=== PATIENT | male | born 1950 | race Two or more races ===

== ENCOUNTER 2018-01-24 18:00 | Inpatient (IN) | payer MEDICARE, BC ==
[~2018-01-24] VITALS: Ht 185.4 cm; Wt 95.7 kg
[2018-01-24] MEDS ORDERED: ASPIR 8181 MG ORAL (18:42)
[2018-01-24] MEDS ORDERED: UNOBMED (18:43)
--- NOTE | 2018-01-24 18:46 | Emergency Room Report ---
History of Present Illness General Chief Complaint: Multiple Trauma/Fall Source: Patient Present Illness HPI Patient presents with complaints of left hip pain he was fixing the fridge and the floor was wet Essentially slipped and tripped falling Patient denies any lapse of consciousness Denies any abdominal pain Pain is localized to the left hip Has difficulty bearing weight Denies any vomiting or diarrhea denies any neuropathy Allergies: Coded Allergies: No Known Allergies (Unverified , 01/24/18) Patient History Past Medical History: see triage record Pertinent Family History: none Reviewed Nursing Documentation: PMH: Agreed; PSxH: Agreed Nursing Documentation-PMH Past Medical History: No History, Except For Hx Hypertension: Yes Review of Systems All Other Systems: negative except mentioned in HPI Physical Exam Vital Signs Date Time Temp Pulse Resp B/P (MAP) Pulse Ox O2 Delivery O2 Flow Rate FiO2 01/24/18 18:18 97.4 63 19 161/74 96 Room Air 97.3 Sp02 EP Interpretation: reviewed, normal General Appearance: well appearing, no apparent distress Head: normocephalic, atraumatic Eyes: bilateral eye PERRL, bilateral eye EOMI ENT: hearing grossly normal, normal pharynx, TMs + canals normal, uvula midline Neck: full range of motion, supple, no meningismus, no bony tend Respiratory: lungs clear, normal breath sounds, no rhonchi, no respiratory distress, no retraction, no accessory muscle use Cardiovascular #1: normal peripheral pulses, regular rate, rhythm, no edema, no gallop, no JVD, no murmur Gastrointestinal: normal bowel sounds, non tender, soft, no mass, no organomegaly, non-distended, no guarding, no hernia, no pulsatile mass, no rebound Genitourinary: no CVA tenderness Musculoskeletal: other - Tender on palpation of the left iliac crest area, moving foot, and neurovascularly intact otherwise Neurologic: oriented x3, responsive, sensory intact Psychiatric: mood/affect normal Skin: normal color, no rash, warm/dry, palpation normal Lymphatic: normal inspection, no adenopathy Medical Decision Making Diagnostic Impression: Primary Impression: Femoral neck fracture ER Course Given the patient's history and presentation patient was written for pain medication upon arrival however he is refusing the medication This is taken into consideration regarding long bone fracture Patient however did take Tylenol orally Imaging studies do reveal left-sided compacted left-sided femoral neck fracture After further discussion with family and the patient there are notified that this is a diagnosis that requires admission to the hospital Orthopedic specialty is contacted Patient admitted for further care Labs Test 01/24/18 21:25 White Blood Count 13.5 K/UL (4.8-10.8) Red Blood Count 3.97 M/UL (4.70-6.10) Hemoglobin 13.2 G/DL (14.2-18.0) Hematocrit 38.9 % (42.0-52.0) Mean Corpuscular Volume 98 FL (80-99) Mean Corpuscular Hemoglobin 33.3 PG (27.0-31.0) Mean Corpuscular Hemoglobin Concent 33.9 G/DL (32.0-36.0) Red Cell Distribution Width 11.5 % (11.6-14.8) Platelet Count 203 K/UL (150-450) Mean Platelet Volume 4.9 FL (6.5-10.1) Neutrophils (%) (Auto) 80.0 % (45.0-75.0) Lymphocytes (%) (Auto) 13.7 % (20.0-45.0) Monocytes (%) (Auto) 5.9 % (1.0-10.0) Eosinophils (%) (Auto) 0.2 % (0.0-3.0) Basophils (%) (Auto) 0.3 % (0.0-2.0) Prothrombin Time 9.9 SEC (9.30-11.50) Prothromb Time International Ratio 0.9 (0.9-1.1) Activated Partial Thromboplast Time 24 SEC (23-33) Sodium Level 139 MMOL/L (136-145) Potassium Level 4.3 MMOL/L (3.5-5.1) Chloride Level 105 MMOL/L (98-107) Carbon Dioxide Level 25 MMOL/L (21-32) Anion Gap 9 mmol/L (5-15) Blood Urea Nitrogen 21 mg/dL (7-18) Creatinine 1.0 MG/DL (0.55-1.30) Estimat Glomerular Filtration Rate > 60 mL/min (>60) Glucose Level 148 MG/DL (74-106) Calcium Level 9.1 MG/DL (8.5-10.1) Total Bilirubin 1.1 MG/DL (0.2-1.0) Direct Bilirubin 0.2 MG/DL (0.0-0.3) Aspartate Amino Transf (AST/SGOT) 18 U/L (15-37) Alanine Aminotransferase (ALT/SGPT) 22 U/L (12-78) Alkaline Phosphatase 62 U/L (46-116) Total Creatine Kinase 110 U/L (26-308) Creatine Kinase MB 1.0 NG/ML (0.0-3.6) Creatine Kinase MB Relative Index 0.9 Troponin I 0.000 ng/mL (0.000-0.056) Total Protein 7.8 G/DL (6.4-8.2) Albumin 3.9 G/DL (3.4-5.0) Globulin 3.9 g/dL Albumin/Globulin Ratio 1.0 (1.0-2.7) EKG Diagnostic Results Rate: normal Rhythm: NSR ST Segments: no acute changes Rhythm Strip Diag. Results EP Interpretation: yes Rate: 66 Rhythm: NSR, no PVC's, no ectopy Chest X-Ray Diagnostic Results Chest X-Ray Diagnostic Results : Chest X-Ray Ordered: Yes # of Views/Limited/Complete: 1 View Indication: Other - Preop EP Interpretation: Yes Interpretation: no consolidation, no pneumothorax, other - Left-sided hazines/scarring Impression: No acute disease CT/MRI/US Diagnostic Results CT/MRI/US Diagnostic Results : Impression CT abdomen pelvis: Left-sided femoral neck fracture refer to report for full specific Last Vital Signs Date Time Temp Pulse Resp B/P (MAP) Pulse Ox O2 Delivery O2 Flow Rate FiO2 01/24/18 18:18 97.4 63 19 161/74 96 Room Air 97.3 Status: improved Disposition: ADMITTED INPATIENT Condition: Serious LuisvilmaNegrito DO January 24, 2018 18:46
[2018-01-24 19:06] VITALS: BP 159/74
[2018-01-24] MEDS ORDERED: Sodium Chloride 500ML 500 ML IV ONE (19:18)
[2018-01-24] MEDS ORDERED: Acetaminophen 500mg (ES) tab ORAL ONE (19:30)
[2018-01-24] MEDS ORDERED: Morphine Sulfate 4mg/ml Inj IVP ONE (19:30)
[2018-01-24 21:38] LABS: BASOPHILS % (AUTO) 0.3 % (0.0-2.0); EOSINOPHILS % (AUTO) 0.2 % (0.0-3.0); HEMATOCRIT 38.9 % (42.0-52.0); HEMOGLOBIN 13.2 G/DL (14.2-18.0); LYMPHOCYTES % (AUTO) 13.7 % (20.0-45.0); MEAN CORPUSCULAR VOLUME 98 FL (80-99); MONOCYTES % (AUTO) 5.9 % (1.0-10.0); PLATELET COUNT 203 K/UL (150-450); RED BLOOD COUNT 3.97 M/UL (4.70-6.10); RED CELL DISTRIBUTION WIDTH 11.5 % (11.6-14.8); WHITE BLOOD COUNT 13.5 K/UL (4.8-10.8)
[2018-01-24 21:46] LABS: ANION GAP 9 mmol/L (5-15); BLOOD UREA NITROGEN 21 mg/dL (7-18); CALCIUM 9.1 MG/DL (8.5-10.1); CARBON DIOXIDE 25 MMOL/L (21-32); CHLORIDE 105 MMOL/L (98-107); POTASSIUM 4.3 MMOL/L (3.5-5.1); SODIUM 139 MMOL/L (136-145)
[2018-01-24 21:58] LABS: INR 0.9 (0.9-1.1)
[2018-01-24 22:00] LABS: ALANINE AMINOTRANSFERASE 22 U/L (12-78); ALBUMIN 3.9 G/DL (3.4-5.0); ALKALINE PHOSPHATASE 62 U/L (46-116); ASPARTATE AMINO TRANSFERASE 18 U/L (15-37); BILIRUBIN,TOTAL 1.1 MG/DL (0.2-1.0); CREATINE KINASE 110 U/L (26-308)
[2018-01-24 22:03] LABS: BILIRUBIN,DIRECT 0.2 MG/DL (0.0-0.3)
[2018-01-24] MEDS ORDERED: Morphine Sulfate 4mg/ml Inj IVP PRN ×2 (22:30→22:47)
[2018-01-24] MEDS ORDERED: Zolpidem 5mg tab ORAL PRN (22:30)
[2018-01-24 22:43] VITALS: BP 153/81
[2018-01-24] MEDS ORDERED: D5 1/2NS w/KCl 20mEq 1,000 ML IV SCH (23:21)
[2018-01-25] VITALS: BP 153/84
[2018-01-25] MEDS ORDERED: CRESTOR10 M2 ORAL (00:05)
[2018-01-25] MEDS ORDERED: BISOPROLOL FUMAR5 MG PO (00:05)
[2018-01-25] MEDS: Heparin 5000 units/ml inj SUBQ SCH ×3 (00:13→20:04)
[2018-01-25 04:00] VITALS: BP 148/85
[2018-01-25 08:00] VITALS: BP 143/89
[2018-01-25] MEDS ORDERED: HYDROcodone/Acetamin 10/325 tab ORAL PRN (10:00)
--- NOTE | 2018-01-25 11:38 | Cardiology Report ---
APPROVED REPORT EKG Measurement Heart [id number] Normal sinus rhythm Left axis deviation Incomplete right bundle branch block Abnormal ECG
[2018-01-25 12:00] VITALS: BP 135/83
--- NOTE | 2018-01-25 12:04 | History & Physical ---
History and Physical History & Physicial HP dictated # [id number] SHANNON العلي January 25, 2018 12:04
[2018-01-25 16:00] VITALS: BP 150/84
[2018-01-25 19:59] VITALS: BP 140/84
--- NOTE | 2018-01-25 20:15 | History and Physical Report ---
DATE OF ADMISSION: 01/24/2018 CHIEF COMPLAINT: The patient had a slip and fall and developed left hip pain. HISTORY OF PRESENT ILLNESS: The patient is a 67-year-old, [place] male, who was fixing his fridge. the floor was wet and he slipped and tripped. He developed left hip pain. He was seen here in the emergency room and was diagnosed with left femoral neck fracture. The patient was seen by Dr. Johns in Orthopedic consultation. However, the patient's wanted the patient to be transferred to [facility] and they did not want to have surgery here at [facility]. PAST MEDICAL HISTORY: History of hypertension, otherwise unremarkable. MEDICATIONS: Reviewed in the EMR. ALLERGIES: No known drug allergies. SOCIAL HISTORY: No history of smoking or alcohol abuse. REVIEW OF SYSTEMS: Noncontributory. PHYSICAL EXAMINATION: GENERAL: The patient is a 67-year-old male, in no acute distress. VITAL SIGNS: Blood pressure 143/89, pulse 71, temperature 98.1 degrees, and respiratory rate is 20. HEENT: [place] conjunctivae. Anicteric sclerae. NECK: Supple. LUNGS: Clear to auscultation. HEART: S1 and S2 without murmurs or rubs. ABDOMEN: Soft and nontender. EXTREMITIES: No cyanosis or edema. LABORATORY AND DIAGNOSTIC DATA: Chemistry panel shows serum sodium 139, potassium 4.3, chloride 105, CO2 25, BUN is 21, and and creatinine 1.0. Calcium is 9.1. CBC shows a WBC of 13.5, hematocrit 38.9, hemoglobin is 13.2, and platelets 203,000. ASSESSMENT: This is a 67-year-old [place]ian male, who was admitted with left hip fracture after a slip and fall. The patient has a history of hypertension. PLAN: The patient will be on pain medications and IV fluids and plans will be made to transfer the patient to [facility] for surgery. Case was discussed with the patient and also with RN. Thank you very much. Mika Jennings M.D. DR: HIRAM JOB#: [id number] CC: ASHLEY
[2018-01-26] VITALS: BP 136/82
[2018-01-26 04:00] VITALS: BP 147/85
[2018-01-26 08:00] VITALS: BP 145/83
[2018-01-26] MEDS: Heparin 5000 units/ml inj SUBQ SCH (09:00)
[2018-01-26 12:00] VITALS: BP 147/80
--- NOTE | 2018-01-27 00:45 | Consultation ---
DATE OF CONSULTATION: 01/26/2018 ORTHOPEDIC CONSULTATION CONSULTING PHYSICIAN: Tyree Johns M.D. CHIEF COMPLAINT: Left hip pain. HISTORY OF PRESENT ILLNESS: The patient is a pleasant 67-year-old gentleman, who sustained a mechanical fall, has significant pain in the left hip. He was brought to the ER, was diagnosed with displaced femoral neck fracture. Orthopedic consultation obtained for further care and recommendation. PAST MEDICAL HISTORY: Reviewed per intake chart. PAST SURGICAL HISTORY: Reviewed per intake chart. MEDICATIONS: Reviewed per intake chart. PHYSICAL EXAMINATION: The patient speaks Malagasy. He has moderate pain in the left hip. Posterior calf is soft. Neurovascular is normal. IMAGING STUDIES: Showed displaced femoral neck fracture. ASSESSMENT: Left displaced femoral neck fracture. DISCUSSION: At this point, I recommend proceeding with left total hip arthroplasty. The patient speaks Malagasy and wants me to speak to one of his family members for further decision regarding to proceed with surgery. In the meantime, the patient needs bed rest. He should be on SCDs and subcutaneous heparin in the meantime. Tyree Johns M.D. DR: VASILE JOB#: [id number] CC:
--- NOTE | 2018-01-27 16:00 | Progress Note ---
DATE: 01/25/2018 SUBJECTIVE: The patient was admitted last night with left femoral neck fracture. He has moderate pain and discomfort. OBJECTIVE: Examination shows pain with internal and external rotation. Posterior calf is soft. Neurovascular is normal. ASSESSMENT: Left displaced femoral neck fracture. DISCUSSION: At this point, I have spoken with his supervisor cellars who I believe is his niece and she informed me that they want his care transferred to [facility]; therefore, we will perform the transfer list today 00:40 inform the [facility] and then potentially based when he gets 00:43 proceed with surgery based on schedules. Risks, limitations, expectation, and complications related to surgery were discussed with the patient. They understand that, but still wished to proceed with the transfer given the primary care doctor, who primarily at [facility]. Tyree Johns M.D. DR: Michael JOB#: [id number] CC:
--- NOTE | 2018-01-28 08:46 | Discharge Summary ---
Discharge Summary Discharge Summary Discharge Summary DATE OF ADMISSION: 01/24/2018 DATE OF DISCHARGE: 01/26/2018 REASON FOR ADMISSION: 67 years old [place] Islander-speaking male with a past medical history significant for hypertension, presented to emergency department complaining of the left hip pain and difficulty bearing weight. Patient sustained accidental slip and fall while repairing fridge. Patient stated that the floor was wet. Patient denied any loss of consciousness. Patient denied abdominal pain. He denied chest pain, shortness of breath, nausea ,vomiting, diarrhea. Upon evaluation in ED vital signs were stable. WBC with mild elevation 13.5, stable hemoglobin and hematocrit. Stable renal parameters and electrolytes. Troponin negative. EKG revealed normal sinus rhythm, no acute ischemic changes. CT abdomen and pelvis revealed displaced left sided femoral neck fracture. Patient admitted for surgical management with diagnosis of left displaced femoral neck fracture, status slip and fall, hypertension. CONSULTANTS: Orthopedic surgery Dr. Johns [facility] COURSE: Patient was admitted to medical surgical floor. Orthopedic surgery consult was requested. Patient was on gentle IV fluids. Pain management provided. DVT and GI prophylaxis provided. Blood pressure was closely monitored and remained stable. Orthopedic surgeon seen and evaluated the patient. Orthopedic surgeon recommended to proceed with a total left hip arthropathy. Patient was neurovascularly intact. However family expressed desire to transfer patient to [facility] for surgical intervention. Transfer was arranged, and patient subsequently was transferred to [facility] for further surgical intervention FINAL DIAGNOSES: Left displaced femoral neck fracture Status post slip and fall Hypertension DISCHARGE MEDICATIONS: List of medication was sent to accepting facility DISCHARGE INSTRUCTIONS: Patient was transferred to [facility] for surgical intervention I have been assigned to dictate discharge summary for this account. I was not involved in the patient's management. Rosario Bishop NP ([place]) January 28, 2018 08:46
== END 2018-01-26 13:50 | disposition short-term general hospital (02) | DRG 536 ==
LOC: EMR 21:37 → EDBEDREQ 22:01 → 4E 22:37
DX: S72.002A Fracture of unspecified part of neck of left femur, initial encounter for closed fracture (principal); I10 Essential (primary) hypertension; W01.0XXA Fall on same level from slipping, tripping and stumbling without subsequent striking against object, initial encounter; Y92.89 Other specified places as the place of occurrence of the external cause
CPT/HCPCS: 36415; 71045; 74176; 80053; 82248; 82550; 82553; 84484; 85025; 85610; 85730; 87081; 93005; 99285